=== PATIENT | male | born 1990 | race Caucasian/White ===

== ENCOUNTER → 2017-07-14 | Outpatient (CLI) | payer BC ==
--- NOTE | 2017-07-14 12:19 | RAD ---
MRI left shoulder without contrast dated 07/14/2017 11:11 AM Indication: LEFT SHOULDER PAIN AND CREPITUS X 2 YEARS AFTER AWKWARD FALL WHILE PLAYING [employer], NO SX HX, NO PRIORS . . Pain Comparison: No comparison is available. Technique: Routine multiplanar multisequence imaging performed. . Findings: Bone marrow signal is homogeneous. No marrow edema. Suprascapular and spinoglenoid notches are clear. No significant muscle edema or muscle atrophy. Intermediate T2 signal within the supraspinatus and infraspinatus portions of the rotator cuff. No full-thickness tear or cuff retraction. Subscapularis is intact. Long head biceps tendon and biceps anchor are intact. Extra articular biceps tendon courses within the bicipital groove. AC joint unremarkable. No significant undersurface spurring. No significant subacromial/subdeltoid bursal fluid collection. Glenoid labrum is grossly intact. No apparent labral tear or para labral cyst. No glenohumeral joint effusion or loose body. IMPRESSION: 1. No evidence of internal derangement. 2. Mild rotator cuff tendinopathy with no evidence of full-thickness tear. Electronically signed by: Kurtis Peralta MD (07/14/2017 12:16 PM) [id number]
== END | disposition home or self-care (01) ==
LOC: MRI 10:45
PROVIDERS: ATTEND Orthopaedic Surgery Sports Medicine
DX: S49.92XA Unspecified injury of left shoulder and upper arm, initial encounter (principal); X58.XXXA Exposure to other specified factors, initial encounter; Y93.66 Activity, soccer; Y92.89 Other specified places as the place of occurrence of the external cause; Y99.8 Other external cause status
CPT/HCPCS: 73221